=== PATIENT | male | born 1970 | race Caucasian/White ===

== ENCOUNTER 2024-02-22 12:47 | Emergency (ER) | payer SELFPAY ==
[2024-02-22 13:14] VITALS: BP 145/68
[2024-02-22] MEDS: MOTRIN 600 MG PO (15:16)
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
== END 2024-02-22 15:47 | disposition home or self-care (01) ==
LOC: EMR 12:47
PROVIDERS: EMERGENCY PHYSICIAN Emergency Medicine; FAMILY PHYSICIAN Family Medicine
DX: S22.32XA Fracture of one rib, left side, initial encounter for closed fracture (principal); W50.1XXA Accidental kick by another person, initial encounter
CPT/HCPCS: 99283; 71101